=== PATIENT | female | born 1950 | race Two or more races ===

== ENCOUNTER 2024-12-19 21:03 | Inpatient (IN) | payer MEDICARE, OTHER ==
[~2024-12-19] VITALS: Ht 142.2 cm; Wt 49.9 kg
[2024-12-19 23:10] LABS: PLATELET COUNT (AUTO) 342 K/uL (150-450); RED BLOOD CELL COUNT(AUTO) 4.29 MIL/uL (4.0-5.2); RED CELL DISTRIBUTION WIDTH 19.8 % (11.5-15.0); WHITE BLOOD COUNT (AUTO) 9.8 K/uL (4.3-11.0)
[2024-12-19 23:16] LABS: CALCIUM, SERUM 8.8 mg/dL (8.5-10.1); CREATININE 0.9 mg/dL (0.6-1.3); SODIUM SERUM 136 mmol/L (136-145); UREA NITROGEN, BLOOD 31 mg/dL (7-18)
[2024-12-19 23:17] LABS: SERUM AMMONIA 3 umol/L (11-32)
[2024-12-19 23:21] LABS: ALCOHOL, BLOOD < 3 mg/dL (0-10); ASPARTATE AMINOTRANSFERASE 18 U/L (15-37); TOTAL PROTEIN, SERUM 6.8 g/dL (6.4-8.2)
[2024-12-20 00:01] LABS: APPEARANCE,URINE CLEAR (CLEAR); BLOOD, URINE NEGATIVE Ery/uL (NEGATIVE); LEUKOCYTE ESTERASE ,URINE NEGATIVE (NEGATIVE); NITRITE, URINE NEGATIVE (NEGATIVE); UGLUCOSE NEGATIVE (NEGATIVE)
[2024-12-20 00:21] LABS: AMPHETAMINE, URINE NEGATIVE (NEGATIVE); BARBITURATE, URINE NEGATIVE (NEGATIVE); BENZODIAZEPINE, URINE NEGATIVE (NEGATIVE); CANNABINOID, URINE NEGATIVE (NEGATIVE); COCCAINE, URINE NEGATIVE (NEGATIVE); OPIATE, URINE NEGATIVE (NEGATIVE)
[2024-12-20] MEDS ORDERED: MAGNESIUM HYDROXIDE 30 ML UDC PO PRN (02:00)
[2024-12-20] MEDS ORDERED: MAG HYDROX/AL HYDROX/SIMETH 30 ML UDC PO PRN (02:00)
[2024-12-20] MEDS ORDERED: QUETIAPINE FUMARATE 25 MG TABLET PO PRN ×2 (02:00)
[2024-12-20] MEDS ORDERED: ZOLPIDEM TARTRATE 5 MG TABLET PO PRN (02:00)
[2024-12-20] MEDS: BLOOD SUGAR DIAGNOSTIC 1 EACH STRIP IN ONE (02:28)
[2024-12-20 08:00] VITALS: BP 107/59; TEMP 97.8; O2SAT 100
[2024-12-20] MEDS ORDERED: MEMA10TA56 PO (12:57)
[2024-12-20] MEDS ORDERED: MULT-1244 PO (12:57)
[2024-12-20] MEDS ORDERED: ASCO500T23 PO (12:57)
[2024-12-20] MEDS ORDERED: LEVO75TA7 PO (12:57)
[2024-12-20] MEDS ORDERED: FOSF3PAC PO (12:57)
[2024-12-20] MEDS ORDERED: DULO30CA52 PO (12:57)
[2024-12-20] MEDS ORDERED: HALO0.5T2 PO (12:57)
[2024-12-20] MEDS ORDERED: OMEP20CA15 PO (12:57)
[2024-12-20] MEDS ORDERED: DOCU-270 PO (12:57)
[2024-12-20] MEDS ORDERED: LORA-258 PO (12:57)
[2024-12-20] MEDS ORDERED: LAMO100T17 PO (12:57)
[2024-12-20] MEDS ORDERED: ZINC1CAP3 PO (12:57)
[2024-12-20] MEDS ORDERED: INSU100I14 SQ (12:57)
[2024-12-20] MEDS ORDERED: MIRT-73 PO (12:57)
[2024-12-20] MEDS ORDERED: SIMV-46 PO (12:57)
[2024-12-20] MEDS ORDERED: DIVA125T2 PO (12:57)
[2024-12-20 16:00] VITALS: BP 135/66; TEMP 98.1; O2SAT 100
[2024-12-20 20:26] VITALS: BP 167/61; TEMP 97.7; O2SAT 98
[2024-12-20] MEDS ORDERED: DEXTROSE 50%-WATER 50 ML DISP.SYRIN IV PRN (21:00)
[2024-12-20] MEDS: DIVALPROEX SODIUM 125 MG TABLET.DR PO SCH (21:07)
[2024-12-20] MEDS: ZOLPIDEM TARTRATE 5 MG TABLET PO PRN (21:47)
[2024-12-20] MEDS: BLOOD SUGAR DIAGNOSTIC 1 EACH STRIP IN SCH (22:01)
[2024-12-20] MEDS: INSULIN REGULAR, HUMAN 100 UNIT/ML 3 ML VIAL SQ PRN (22:10)
[2024-12-21] MEDS: PANTOPRAZOLE 40 MG TABLET.DR PO SCH (07:59)
[2024-12-21 08:00] VITALS: BP 126/53; TEMP 97.7; O2SAT 97
[2024-12-21] MEDS: LEVOTHYROXINE SODIUM 75 MCG TABLET PO SCH (08:00)
[2024-12-21 08:02] LABS: ASPARTATE AMINOTRANSFERASE 16.0 U/L (15-37); CALCIUM, SERUM 8.6 mg/dL (8.5-10.1); CREATININE 0.8 mg/dL (0.6-1.3); SODIUM SERUM 139.0 mmol/L (136-145); TOTAL PROTEIN, SERUM 6.9 g/dL (6.4-8.2); UREA NITROGEN, BLOOD 29.0 mg/dL (7-18)
[2024-12-21] MEDS: SIMVASTATIN 20 MG TABLET PO SCH (08:55)
[2024-12-21] MEDS: ASCORBIC ACID 500 MG TABLET PO SCH (08:55)
[2024-12-21] MEDS: MULTIVITAMINS,THERAGRAN 1 UDTAB TABLET PO SCH (08:55)
[2024-12-21] MEDS: DOCUSATE SODIUM 100 MG CAPSULE PO SCH (08:55)
[2024-12-21] MEDS: SERTRALINE HCL 25 MG TABLET PO SCH (08:56)
[2024-12-21] MEDS: ZINC SULFATE 220 MG CAPSULE PO SCH (08:56)
[2024-12-21] MEDS: MEMANTINE HCL 5 MG TABLET PO SCH (08:56)
[2024-12-21 09:11] LABS: LDL 120 mg/dL (0-99)
[2024-12-21] MEDS: METFORMIN 500 MG TABLET PO SCH (09:57)
[2024-12-21 16:00] VITALS: BP 151/55; TEMP 98.2; O2SAT 100
[2024-12-21 20:17] VITALS: BP 133/57; TEMP 98.4; O2SAT 96
[2024-12-21] MEDS: DIVALPROEX SODIUM 125 MG TABLET.DR PO SCH (20:50)
[2024-12-22 08:00] VITALS: BP 121/56; TEMP 97.7; O2SAT 97
[2024-12-22 11:07] LABS: FOLIC ACID 15.5 ng/mL (>3.0)
[2024-12-22 16:00] VITALS: BP 127/66; TEMP 98.1; O2SAT 100
[2024-12-22] MEDS: QUETIAPINE FUMARATE 25 MG TABLET PO SCH (20:39)
[2024-12-22 20:52] VITALS: BP 130/70; TEMP 98; O2SAT 99
[2024-12-23 08:00] VITALS: BP 100/71; TEMP 97.8; O2SAT 96
[2024-12-23 16:00] VITALS: BP 144/78; TEMP 97.8; O2SAT 100
[2024-12-23 20:30] VITALS: BP 137/68; TEMP 99; O2SAT 98
[2024-12-24 08:10] VITALS: BP 141/72; TEMP 97.7; O2SAT 98
[2024-12-24 16:02] VITALS: BP 149/71; TEMP 97.5; O2SAT 98
[2024-12-24 20:47] VITALS: BP 132/54; TEMP 99; O2SAT 99
[2024-12-25] MEDS ORDERED: Z GUARD REMEDY 4 OZ OINT TP PRN (02:30)
[2024-12-25 08:00] VITALS: BP 122/82; TEMP 98.6; O2SAT 100
[2024-12-25] MEDS: METFORMIN 500 MG TABLET PO SCH (08:36)
[2024-12-25 16:00] VITALS: BP 133/78; TEMP 98.2; O2SAT 99
[2024-12-25 20:06] LABS: VITAMIN B1 THIAMINE,WB 99.5 nmol/L (66.5-200.0)
[2024-12-25 20:38] VITALS: BP 147/56; TEMP 98; O2SAT 97
[2024-12-26 08:00] VITALS: BP 119/73; TEMP 98.6; O2SAT 97
[2024-12-26 16:00] VITALS: BP 123/64; TEMP 97.5; O2SAT 100
[2024-12-26 19:55] VITALS: BP 159/60; TEMP 98; O2SAT 100
[2024-12-26] MEDS: DIVALPROEX SODIUM 125 MG TABLET.DR PO SCH (22:03)
[2024-12-27 08:00] VITALS: BP 137/60; TEMP 97.8; O2SAT 100
[2024-12-27] MEDS: DIVALPROEX SODIUM 250 MG TABLET.DR PO SCH (14:33)
[2024-12-27 16:00] VITALS: BP 141/62; TEMP 98; O2SAT 97
[2024-12-27 20:18] VITALS: BP 128/64; TEMP 98.2; O2SAT 100
[2024-12-28 08:00] VITALS: BP 135/54; TEMP 98.1; O2SAT 99
[2024-12-28 16:00] VITALS: BP 135/64; TEMP 97.8; O2SAT 94
[2024-12-28 19:49] VITALS: BP 133/53; TEMP 98.1; O2SAT 100
[2024-12-29 08:00] VITALS: BP 126/61; TEMP 98.1; O2SAT 99
[2024-12-29 16:00] VITALS: BP 140/57; TEMP 98.2; O2SAT 99
[2024-12-29 19:58] VITALS: BP 135/62; TEMP 98.6; O2SAT 99
[2024-12-30 03:31] VITALS: BP 135/62; TEMP 98.6; O2SAT 99
[2024-12-30 08:00] VITALS: BP 136/60; TEMP 97.9; O2SAT 98
[2024-12-30 15:37] VITALS: BP 154/52; TEMP 98.1; O2SAT 98
[2024-12-30 20:31] VITALS: BP 153/52; TEMP 98.1; O2SAT 98
[2024-12-31 08:12] VITALS: BP 150/60; TEMP 97.9; O2SAT 96
[2024-12-31 16:11] VITALS: BP 140/67; TEMP 97.9; O2SAT 97
[2024-12-31 20:00] VITALS: BP 150/57; TEMP 98.3; O2SAT 97
[2024-12-31 20:51] VITALS: BP 150/59; TEMP 98.3; O2SAT 97
[2025-01-01 08:00] VITALS: BP 137/56; TEMP 97.9; O2SAT 100
[2025-01-01 15:29] VITALS: BP 123/53; TEMP 98.2; O2SAT 100
[2025-01-01 20:47] VITALS: BP 118/68; TEMP 98.3; O2SAT 98
[2025-01-02 08:20] VITALS: BP 126/69; TEMP 97.8; O2SAT 100
[2025-01-02 16:00] VITALS: BP 127/80; TEMP 98.4; O2SAT 98
[2025-01-02 19:56] VITALS: BP 112/52; TEMP 98.2; O2SAT 100
[2025-01-03 08:06] VITALS: BP 129/83; TEMP 97.9; O2SAT 100
[2025-01-04] MEDS ORDERED: PANTOPRAZOLE 40 MG/PACK PACK PO SCH (07:30)
== END 2025-01-03 16:20 | disposition home or self-care (01) | DRG 885 ==
LOC: ER 21:07 → GPS 12-20 00:43
PROVIDERS: ADMIT Psychiatry & Neurology Psychiatry; ATTEND Internal Medicine
DX: F39 Unspecified mood [affective] disorder (principal); F03.94 Unspecified dementia, unspecified severity, with anxiety; R45.851 Suicidal ideations; F03.93 Unspecified dementia, unspecified severity, with mood disturbance; I10 Essential (primary) hypertension; F41.9 Anxiety disorder, unspecified; Z20.822 Contact with and (suspected) exposure to COVID-19; D63.8 Anemia in other chronic diseases classified elsewhere; E11.40 Type 2 diabetes mellitus with diabetic neuropathy, unspecified; E11.649 Type 2 diabetes mellitus with hypoglycemia without coma; G25.0 Essential tremor; Z86.718 Personal history of other venous thrombosis and embolism; Z87.440 Personal history of urinary (tract) infections; Z73.6 Limitation of activities due to disability; F89 Unspecified disorder of psychological development; F32.9 Major depressive disorder, single episode, unspecified; M21.372 Foot drop, left foot; M21.371 Foot drop, right foot; Z88.6 Allergy status to analgesic agent
CPT/HCPCS: 36415; 70450-TC; 80053-TC; 80061-TC; 80164-TC; 82140-TC; 82607-TC; 82962-TC; 83921; 84425; 84443-TC; 85025-TC; 87081-TC; 97110-TC; 97112-TC; 97164; 97530-TC; 98960; G0480; J1815